=== PATIENT | female | born 1975 | race Hispanic/Latino ===

== ENCOUNTER 2019-12-03 18:08 | Emergency (ER) | payer OTHER | END 2019-12-03 18:48 | disposition home or self-care (01) | LOC: BURERS 18:08 | DX: R07.81 Pleurodynia (principal); K21.9 Gastro-esophageal reflux disease without esophagitis; F32.9 Major depressive disorder, single episode, unspecified; Z79.899 Other long term (current) drug therapy | CPT/HCPCS: 99281 ==

== ENCOUNTER 2023-12-25 13:58 | Emergency (ER) | payer OTHER | END 2023-12-25 14:37 | disposition home or self-care (01) | LOC: BURERS 13:58 | DX: S46.912A Strain of unspecified muscle, fascia and tendon at shoulder and upper arm level, left arm, initial encounter (principal); V89.2XXA Person injured in unspecified motor-vehicle accident, traffic, initial encounter | CPT/HCPCS: 99283 ==